=== PATIENT | male | born 1950 | race Caucasian/White ===

== ENCOUNTER → 2016-11-24 | Outpatient (CLI) | payer MEDICARE, OTHER ==
--- NOTE | 2016-11-24 11:09 | MM ---
Reason for exam: additional evaluation requested from prior study. Last mammogram was performed 1 year and 4 months ago. History: Patient is postmenopausal, history of other cancer, and is nulliparous. Family history of breast cancer in mother. Benign left mammotome panel of the left breast, May 08, 2013. Taking other hormone for 12 years beginning at age 52. Physical Findings: Nurse did not find any significant physical abnormalities on exam. MG 3D Diag Mammo W/Cad CHARISSE Bilateral CC and MLO view(s) were taken. Prior study comparison: August 03, 2015, bilateral MG diagnostic mammo w CAD CHARISSE. July 31, 2014, left breast MG diagnostic mammo LT w CAD. There are scattered fibroglandular densities. There is no discrete abnormality. No significant new findings when compared with previous films. These results were verbally communicated with the patient and result sheet given to the patient on 11/24/16. ASSESSMENT: Negative, BI-RAD 1 RECOMMENDATION: Clinical management of both breasts. Manage patient on a clinical basis.
== END | disposition home or self-care (01) ==
LOC: RADMAMWWP 11-23 14:23
PROVIDERS: ATTEND Family Medicine
DX: N64.4 Mastodynia (principal)
CPT/HCPCS: G0204; G0279

== ENCOUNTER → 2018-03-20 | Outpatient (CLI) | payer MEDICARE, OTHER ==
--- NOTE | 2018-03-21 10:04 | MR ---
EXAMINATION TYPE: MR lumbar spine wo con DATE OF EXAM: 03/20/2018 COMPARISON: 01/25/2011 HISTORY: Back pain, radiates into buttocks x 8 years TECHNIQUE: Multiplanar, multisequence images of the lumbar spine were acquired. FINDINGS: The vertebral bodies maintain normal vertebral body heights and signal other than degenerat randy endplate changes. Grade 1 anterolisthesis of L5 on S1 is appreciated. Multilevel intervertebral d isc height loss, disc desiccation, degenerative endplate changes, Schmorl's nodes, anterior osteophyt es and facet arthropathy are seen. There is a slight levoconvex curvature of the lower lumbar spine. There is a T2 hyperintense and T1 hypointense probable right renal cyst measuring 2.4 cm emanating fr om the anterior midpole cortex. There is a grade 1 anterolisthesis of L5 on S1 and there appears to b e bilateral pars interarticularis defects at this level. T1/T2 hyperintense vertebral body hemangioma seen of L5. L1-L2: There is a left paracentral disc herniation with mass effect upon the conus medullaris creatin g moderate spinal canal stenosis. This creates buckling of the conus medullaris and is superimposed u mario a broad-based disc bulge. In combination with facet arthropathy and ligamentum flavum buckling th ere is minimal right and moderate left neural foraminal narrowing. L2-L3: There is a large broad-based disc bulge and far left lateral disc herniation in combination wi th ligamentum flavum buckling and facet arthropathy creating moderate left neural foraminal narrowing , moderate right neural foraminal narrowing, and moderate spinal canal stenosis as there is effacemen t of the ventral subarachnoid space. No significant buckling of the cauda equina. L3-L4: Intervertebral disc space narrowing is seen within large broad-based disc bulge and far left l ateral disc herniation. Facet arthropathy and ligamentum flavum buckling contribute to moderate right and severe left neural foraminal narrowing. There is also moderate spinal canal stenosis. L4-L5: Extensive facet arthropathy and right eccentric disc bulge create severe right and moderate le ft neural foraminal narrowing and moderate spinal canal stenosis in the transverse dimension. L5-S1: There is disc uncovering from an anterolisthesis of L5 on S1. Extensive facet arthropathy is s een in addition to a broad-based disc bulge resulting in severe bilateral neural foraminal narrowing. IMPRESSION: 1. Extensive multilevel degenerative disc disease with grade 1 anterolisthesis of L5 on S1 and multil evel disc herniations. 2. Left paracentral disc herniation at L1-L2 with mass effect upon the conus medullaris creating rockwell ling of the conus medullaris and moderate spinal canal stenosis. 3. Degenerative disc disease and far left lateral disc herniation at L2-L3 resulting in moderate bila teral neural foraminal narrowing and moderate spinal canal stenosis. 4. Degenerative disc disease and far left lateral disc herniation at L3-L4 resulting in moderate righ t neuroforaminal narrowing and moderate spinal canal stenosis as well as severe left neural foraminal narrowing. 5. Extensive facet arthropathy and broad-based disc bulge at L4-L5 resulting in severe right neural f oraminal narrowing, moderate left neural foraminal narrowing and moderate transverse spinal canal izabel nosis. 6. Severe bilateral neural foraminal narrowing at L5-S1.
== END | disposition home or self-care (01) ==
LOC: RADMRIMAIN 14:35
PROVIDERS: ATTEND Family Medicine
DX: M48.061 Spinal stenosis, lumbar region without neurogenic claudication (principal); M99.73 Connective tissue and disc stenosis of intervertebral foramina of lumbar region; M51.26 Other intervertebral disc displacement, lumbar region; M51.37 Other intervertebral disc degeneration, lumbosacral region; M43.17 Spondylolisthesis, lumbosacral region; M46.86 Other specified inflammatory spondylopathies, lumbar region; M54.10 Radiculopathy, site unspecified
CPT/HCPCS: 72148

== ENCOUNTER → 2019-03-08 | Outpatient (CLI) | payer MEDICARE, OTHER ==
--- NOTE | 2019-03-08 15:59 | XR ---
EXAMINATION TYPE: XR abdomen 1V DATE OF EXAM: 03/08/2019 COMPARISON: NONE HISTORY: Pain TECHNIQUE: One view abdominal series FINDINGS: The osseous structures are intact. The bowel gas pattern is nonspecific. Lung bases are clear. Hype rtrophic and degenerative change of the spine. Postsurgical change involving the hips. Soft tissue os sification adjacent to the hip joints. IMPRESSION: 1. Nonspecific abdomen.
== END | disposition home or self-care (01) ==
LOC: RADXRMAIN 15:27
PROVIDERS: ATTEND Family Medicine
DX: R10.9 Unspecified abdominal pain (principal)
CPT/HCPCS: 74018

== ENCOUNTER → 2019-06-14 | Outpatient (CLI) | payer MEDICARE, OTHER ==
[2019-06-14 17:28] LABS: Hemoglobin A1C 7.7 % (4.0-6.0)
== END | disposition home or self-care (01) ==
LOC: LABWHC1 08:36
PROVIDERS: ATTEND Internal Medicine
DX: E11.65 Type 2 diabetes mellitus with hyperglycemia (principal); E29.1 Testicular hypofunction
CPT/HCPCS: 36415; 82043; 82570; 83036; 84402; 84403

== ENCOUNTER → 2019-12-26 | Outpatient (CLI) | payer MEDICARE, OTHER ==
--- NOTE | 2019-12-26 09:13 | CT ---
EXAMINATION TYPE: CT abdomen wo con DATE OF EXAM: 12/26/2019 HISTORY: mid abd pain, distention, change in bowel habits CT DLP: 297.4 mGycm. Automated Exposure Control for Dose Reduction was Utilized. TECHNIQUE: CT scan of the abdomen is performed with oral but without IV contrast. COMPARISON: NONE FINDINGS: Within the limitations of a non-contrast study, the following observations are made. LUNG BASES: Coronary artery calcification in the RCA distribution is present. LIVER/GB: Focal 1 cm calcification right hepatic dome in segment 8 presumed benign. Near this level t here is a subcentimeter hypodense lesion image 9 presumed benign too small to further characterize. PANCREAS: No significant abnormality is seen. SPLEEN: No significant abnormality is seen. ADRENALS: No significant abnormality is seen. KIDNEYS: There is 2.6 cm exophytic thin-walled cyst anteriorly upper pole level right kidney axial im age 23. There is roughly 1 cm exophytic thin-walled cysts laterally lower pole of the right kidney. N o renal calculus or hydronephrosis seen bilaterally. BOWEL: The oral contrast only reaches mid to distal jejunal loops in the left abdomen making evaluati on of all suboptimal. There is no suspicious small or large bowel dilatation. There is slightly low-l emery cecum into the right pelvis excluded in field of view on this study. There is prominence of feca l material in the right and transverse colon on the study noted. LYMPH NODES: No greater than 1cm abdominal lymph nodes are appreciated. OSSEOUS STRUCTURES: There is dextroconvex scoliosis centered at L2-L3 level. Spine is straightened on sagittal images with grade 1 anterolisthesis L5 on S1. Moderate to severe disc space narrowing and v acuum disc phenomenon along with moderate to severe spurring and endplate sclerosis level L2-L3 and L 3-L4 levels. Right lateral translation of L3 on L4 noted. Hhjsioem-qt-[id number] disc space narrowing at L4-L5 level. Moderate disc space narrowing with vacuum disc phenomenon L5-S1 level. Mild to moderate disc space narrowing with prominent posterior spur disc L1-L2 level effacing the anterior thecal sac sagittal image 57 and axial image 22 for reference. OTHER: Moderate calcified plaque of the abdominal aorta extends into branch vessels. Anterior right s mall mid abdominal calcifications near axial image 30 of uncertain etiology presumed benign. IMPRESSION: 1. Overall nonobstructive bowel gas pattern. Moderate Proximal colonic fecal stasis however noted.
== END | disposition home or self-care (01) ==
LOC: RADCTMAIN 08:07
PROVIDERS: ATTEND Family Medicine
DX: R10.84 Generalized abdominal pain (principal)
CPT/HCPCS: 74150

== ENCOUNTER → 2020-06-02 | Outpatient (CLI) | payer MEDICARE, OTHER ==
[2020-06-02 16:59] LABS: Hemoglobin A1C 5.9 % (4.0-6.0)
== END | disposition home or self-care (01) ==
LOC: LABWHC1 09:57
PROVIDERS: ATTEND Internal Medicine
DX: E11.65 Type 2 diabetes mellitus with hyperglycemia (principal); E29.1 Testicular hypofunction
CPT/HCPCS: 36415; 83036; 84402; 84403

== ENCOUNTER 2020-11-13 10:02 | Emergency (ER) | payer MEDICARE, OTHER ==
[2020-11-13 10:09] VITALS: BP 146/92; PULSE 87; RESP 18; TEMP 98.7
--- NOTE | 2020-11-13 10:13 | ED ---
Skin/Abscess/FB HPI - General Chief complaint: Skin/Abscess/Foreign Body Stated complaint: Sent by PCP - ENT Time Seen by Provider: 11/13/20 10:09 Source: patient Mode of arrival: ambulatory Limitations: no limitations - History of Present Illness Initial comments: 10-year-old male presenting to emergency Department chief complaint jaw swelling. Patient states this occurred 6 days ago and he called his primary care physician 5 days ago. States he did not receive an answer several days after. Patient states he spoke with the office staff over the phone advised him to come to emergency department for evaluation. Patient states the infection has since subsided. States it initially was erythematous and swollen near the angle of the right mandible. Patient states right now there is very minimal swelling or tenderness. He denies any night sweats fevers or chills. Patient is not diabetic. Denies any ear pain or swelling behind the ear. - Related Data Home Medications Medication Instructions Recorded Confirmed LORazepam [Ativan] 0.5 mg PO HS PRN 05/21/15 04/30/19 Aspirin [Adult Low Dose Aspirin EC] 81 mg PO DAILY 04/30/19 04/30/19 Ibuprofen [Motrin] 600 mg PO Q8HR PRN 04/30/19 04/30/19 Pioglitazone HCl 30 mg PO DAILY 04/30/19 04/30/19 Rosuvastatin [Crestor] 10 mg PO DAILY 04/30/19 04/30/19 Testosterone Cypionate 200 mg IM Q14D 04/30/19 04/30/19 [Depo-Testosterone] buPROPion HCL [Wellbutrin SR] 150 mg PO DAILY 04/30/19 04/30/19 metFORMIN HCL ER [Glucophage Xr] 1,000 mg PO BID 04/30/19 04/30/19 oxyCODONE-APAP 7.5-325MG [Percocet 1 tab PO BID PRN 04/30/19 04/30/19 7.5-325 mg] Previous Rx's Medication Instructions Recorded predniSONE [Deltasone] 20 mg PO BID #6 tab 04/30/19 Amoxicillin/Potassium Clav 1 tab PO Q12HR #20 tab 11/13/20 [Augmentin 875-125 Tablet] Allergies Allergy/AdvReac Type Severity Reaction Status Date / Time codeine Allergy Unknown Verified 11/13/20 10:08 morphine Allergy Itching Verified 11/13/20 10:08 oxycodone HCl Allergy Unknown Verified 11/13/20 10:08 [From OxyContin] Review of Systems ROS Statement: Those systems with pertinent positive or pertinent negative responses have been documented in the HPI. ROS Other: All systems not noted in ROS Statement are negative. 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, History of Any Multi-Drug Resistant Organisms: None Reported Past Surgical History: Appendectomy, Joint Replacement, Tonsillectomy Additional Past Surgical History / Comment(s): bilateral hip replacement, right elbow Past Anesthesia/Blood Transfusion Reactions: No Reported Reaction Past Psychological History: Depression Smoking Status: Current every day smoker Past Alcohol Use History: None Reported Past Drug Use History: None Reported - Past Family History Mother Family Medical History: COPD, Coronary Artery Disease (CAD), Diabetes Mellitus Brother(s) Family Medical History: Diabetes Mellitus Additional Family Medical History / Comment(s): liver transplant, hepatitis C Father Family Medical History: Cancer (Lung), Diabetes Mellitus Additional Family Medical History / Comment(s): lung CA General Exam Limitations: no limitations General appearance: alert, in no apparent distress Head exam: Present: atraumatic, normocephalic, normal inspection Eye exam: Present: normal appearance, PERRL, EOMI Pupils: Present: normal accommodation ENT exam: Present: normal exam, normal oropharynx (No signs of periapical abscess. There is no intraoral lesions. There is very mild swelling near the right ankle the mandible. No erythema or ecchymosis or any cutaneous infection noted.), mucous membranes moist, TM's normal bilaterally, normal external ear exam, other (No tenderness or erythema near the mastoid.) Neck exam: Present: normal inspection, full ROM. Absent: tenderness, lymphadenopathy Respiratory exam: Present: normal lung sounds bilaterally. Absent: respiratory distress, wheezes, rales Cardiovascular Exam: Present: regular rate, normal rhythm, normal heart sounds. Absent: systolic murmur, diastolic murmur Extremities exam: Present: normal inspection, full ROM. Absent: tenderness Back exam: Present: normal inspection, full ROM. Absent: tenderness, CVA tenderness (R), CVA tenderness (L) Neurological exam: Present: alert, oriented X3 Psychiatric exam: Present: normal affect, normal mood Skin exam: Present: warm, dry, intact, normal color Course Vital Signs 11/13/20 10:06 Temperature 98.7 F Pulse Rate 87 Respiratory 18 Rate Blood Pressure 146/92 O2 Sat by Pulse 97 Oximetry Medical Decision Making - Medical Decision Making 70-year-old male presenting to emergency Department with chief complaint of swelling on the right jaw. On physical examination, patient only has very mild swelling with no tenderness erythema or any signs of infection at this time. No mastoid tenderness or erythema. Rest of ENT examination is unremarkable. I will start patient on Augmentin. Patient advised to apply warm compresses to the region and try to eat saliva stimulative foods. Return parameters thoroughly discussed patient was understanding Misael. Case discussed with physician. Disposition Clinical Impression: Swelling of right side of face Disposition: HOME SELF-CARE Condition: Stable Instructions (If sedation given, give patient instructions): Parotid Duct Obstruction (ED), Sialoadenitis (ED) Additional Instructions: Take prescribed medication as directed. eat saliva stimulative foods like job. Keep applying warm compresses. Please return to the Emergency Department if symptoms worsen or any other concerns. Follow with the primary care physician. Prescriptions: Amoxicillin/Potassium Clav [Augmentin 875-125 Tablet] 1 tab PO Q12HR #20 tab Is patient prescribed a controlled substance at d/c from ED?: No Referrals: Candelario Pandya DO [Primary Care Provider] - 1-2 days Time of Disposition: 10:33
== END 2020-11-13 10:45 | disposition home or self-care (01) ==
LOC: EC 10:02
DX: R22.0 Localized swelling, mass and lump, head (principal); F32.9 Major depressive disorder, single episode, unspecified; E11.9 Type 2 diabetes mellitus without complications; I10 Essential (primary) hypertension; F17.200 Nicotine dependence, unspecified, uncomplicated; Z79.84 Long term (current) use of oral hypoglycemic drugs; Z79.82 Long term (current) use of aspirin; Z79.899 Other long term (current) drug therapy; Z88.5 Allergy status to narcotic agent; Z88.8 Allergy status to other drugs, medicaments and biological substances; Z90.49 Acquired absence of other specified parts of digestive tract; Z96.643 Presence of artificial hip joint, bilateral; Z96.661 Presence of right artificial ankle joint
CPT/HCPCS: 99283

== ENCOUNTER 2021-03-07 16:23 | Emergency (ER) | payer MEDICARE, OTHER ==
[2021-03-07 16:31] VITALS: RESP 16
[2021-03-07] MEDS ORDERED: DIPH,PERTUS(ACELL)TETVAC-LF 0.5 ML VIAL IM ONE (16:40)
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
[2021-03-07] MEDS ORDERED: LIDOCAINE 1% INJ 10MG/ML (20 ML MDV) SQ ONE (18:17)
[2021-03-07 19:11] VITALS: BP 121/74; PULSE 87; TEMP 98.1
== END 2021-03-07 19:10 | disposition home or self-care (01) ==
LOC: EC 16:23
DX: S06.0X0A Concussion without loss of consciousness, initial encounter (principal); S01.81XA Laceration without foreign body of other part of head, initial encounter; S01.111A Laceration without foreign body of right eyelid and periocular area, initial encounter; E11.9 Type 2 diabetes mellitus without complications; I10 Essential (primary) hypertension; F32.9 Major depressive disorder, single episode, unspecified; F17.200 Nicotine dependence, unspecified, uncomplicated; Z23 Encounter for immunization; Z90.49 Acquired absence of other specified parts of digestive tract; Z90.09 Acquired absence of other part of head and neck; Z79.84 Long term (current) use of oral hypoglycemic drugs; Z79.82 Long term (current) use of aspirin; Y04.8XXA Assault by other bodily force, initial encounter
CPT/HCPCS: 72125; 70450; 90715; 99284; 12013; 90471; 96372; J2001

== ENCOUNTER → 2021-05-18 | Outpatient (CLI) | payer MEDICARE, OTHER ==
[2021-05-18 15:24] LABS: HGB 14.4 g/dL (13.0-17.0); MCH 30.9 pg (27.0-32.0); MCHC 33.5 g/dL (32.0-37.0); MCV 92.3 fL (80.0-97.0); Mean Platelet Volume 10.4 fL (9.5-12.2); Platelet Count 265 X 10*3/uL (140-440); RBC 4.66 X 10*6/uL (4.40-5.60); RDW 12.7 % (11.5-14.5); WBC 8.81 X 10*3/uL (4.50-10.00)
[2021-05-18 18:22] LABS: Calcium 9.5 mg/dL (8.7-10.3); Chol/HDL Ratio 3.69; LDL Cholesterol,Calculated 62.6 mg/dL (0.0-131.0); Non-African American GFR(CKD) 75.9 (60.0-200.0); Potassium 4.2 mmol/L (3.5-5.5); VLDL Calculation 31.4 mg/dL (5.00-40.00)
[2021-05-18 22:22] LABS: Urine Creatinine 118.3 mg/dL
== END | disposition home or self-care (01) ==
LOC: LABWHC1 08:30
PROVIDERS: ATTEND Internal Medicine
DX: E11.65 Type 2 diabetes mellitus with hyperglycemia (principal); E29.1 Testicular hypofunction
CPT/HCPCS: 36415; 80048; 80061; 82043; 82570; 83036; 84402; 84403; 85027

== ENCOUNTER → 2021-05-18 | Outpatient (CLI) | payer MEDICARE, OTHER ==
[2021-05-18 11:13] LABS: African American GFR (CKD) >90 (>60 ml/min/1.73 sqM); Blood Urea Nitrogen 11 mg/dL (9-20); Non-African American GFR(CKD) >90 (>60 ml/min/1.73 sqM)
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
== END | disposition home or self-care (01) ==
LOC: RADCTMAIN 10:36
PROVIDERS: ATTEND Family Medicine
DX: G44.309 Post-traumatic headache, unspecified, not intractable (principal)
CPT/HCPCS: 82565; 84520; 70470; 36415; Q9967

== ENCOUNTER → 2023-03-07 | Outpatient (CLI) | payer MEDICARE, OTHER ==
--- NOTE | 2023-03-08 08:42 | XR ---
EXAMINATION TYPE: 2 view chest DATE OF EXAM: 03/08/2023 COMPARISON: 11/04/2021 HISTORY: Cough TECHNIQUE: One view abdominal series FINDINGS: The osseous structures are intact. The bowel gas pattern is nonspecific. Lung bases are clear. Arthropathy of the shoulders. Hypertrophic degenerative changes spine. No failure. IMPRESSION: 1. Mildly coarsened interstitium can be associated with a bronchitis or mild interstitial pneumonitis correlate clinically. MTDD
== END | disposition home or self-care (01) ==
LOC: RADXRMAIN 16:00
PROVIDERS: ATTEND Family Medicine
DX: R05.9 Cough, unspecified (principal); R91.8 Other nonspecific abnormal finding of lung field
CPT/HCPCS: 71046

== ENCOUNTER → 2023-04-05 | Outpatient (CLI) | payer MEDICARE, OTHER ==
[2023-04-05 16:26] LABS: ALT 16 U/L (10-49); AST 17 U/L (14-35); Blood Urea Nitrogen 8.1 mg/dL (9.0-27.0); Calcium 9.9 mg/dL (8.7-10.3); Carbon Dioxide 28.1 mmol/L (21.6-31.8); Chloride 105 mmol/L (96-109); Chol/HDL Ratio 6.08 Ratio; Glucose 119 mg/dL (70-110); LDL Cholesterol,Calculated 159.5 mg/dL (0.0-131.0); Potassium 5.2 mmol/L (3.5-5.5); Sodium 142 mmol/L (135-145)
[2023-04-05 19:21] LABS: HCT 41.9 % (39.6-50.0); HGB 13.8 d/dL (12.0-15.0); MCH 29.8 pg (27.0-32.0); MCHC 32.9 d/dL (32.0-37.0); MCV 90.5 FL (80.0-97.0); Mean Platelet Volume 10.4 FL (9.5-12.2); NRBC Per 100 WBC 0 X 10*3/uL (0.00-0.01); Platelet Count 247 X 10*3/uL (140-440); RBC 4.63 X 10*6/uL (4.40-5.60); WBC 7.33 X 10*3/uL (4.50-10.00)
== END | disposition home or self-care (01) ==
LOC: LABWHC1 09:44
PROVIDERS: ATTEND Internal Medicine Cardiovascular Disease
DX: E78.2 Mixed hyperlipidemia (principal); R07.2 Precordial pain
CPT/HCPCS: 36415; 80048; 80061; 84443; 84450; 84460; 85027

== ENCOUNTER → 2023-06-20 | Outpatient (CLI) | payer MEDICARE, OTHER ==
--- NOTE | 2023-06-20 11:10 | MR ---
EXAMINATION TYPE: MR lumbar spine wo con DATE OF EXAM: 06/20/2023 COMPARISON: 03/20/2018 HISTORY: Low back pain TECHNIQUE: T1 and T2 axial and sagittal images of the lumbar spine are submitted. FINDINGS: There is no abnormal signal seen within the visualized spinal cord or paraspinal soft tissu es. There is a curvature of the spine with severe degenerative disc disease at all levels. Simple-michael earing right renal cysts. Aorta normal caliber. At L1-2 there is there is a broad-based central disc herniation results in compression of the thecal sac and severe canal stenosis. Facet arthropathy is present. Moderate bilateral foraminal approach. At L2-3 there is broad-based central disc herniation with significant compression syndrome, severe ca nal stenosis, and additionally there is evidence of hypertrophy of the ligamentum flavum and facet sandrine ints moderate right foraminal encroachment and moderate to severe. At L3-4 there is severe degenerative disc disease with broad-based disc protrusion and facet arthropa thy. Moderate to severe canal stenosis. Moderate right and severe left foraminal protrusion. Hypertro phy of the ligamentum flavum. At L4-5 there is partial fusion of the disc space with marked hypertrophy of the facet joints. There is posterior spondylosis. Moderate bilateral foraminal moderate canal stenosis. At L5-S1 there is severe degenerative disc disease with vacuum disc. Similar throughout the. Moderate to severe bilateral foraminal enlargement greater on the left and is a grade 1 anterior listhesis of L5 on S1. There is extrusion of disc material from the disc space superiorly and paracentrally to th e left a small disc fragment seen immediately posterior to the L5 vertebral body measuring 6 mm. Susp ect bilateral stress pars defects L5. IMPRESSION: 1. Scoliosis with severe degenerative disc disease at all levels similar to the prior exam. Disc crista iation L5-S1 with extruded fragment extending posterior to the L5 segment paracentral to left. 2. Stable grade 1 anterolisthesis of L5 relative to S1. 3. Multilevel disc herniation\protrusion extending from levels L1-L4 resulting in severe canal stenos is and bilateral foraminal encroachment.
== END | disposition home or self-care (01) ==
LOC: RADMRIMAIN 09:19
PROVIDERS: ATTEND Psychiatry & Neurology Neurology
DX: M51.16 Intervertebral disc disorders with radiculopathy, lumbar region (principal); M48.061 Spinal stenosis, lumbar region without neurogenic claudication; M99.73 Connective tissue and disc stenosis of intervertebral foramina of lumbar region; M41.86 Other forms of scoliosis, lumbar region; M43.16 Spondylolisthesis, lumbar region
CPT/HCPCS: 72148

== ENCOUNTER 2023-11-17 19:06 | Emergency (ER) | payer MEDICARE, OTHER ==
[2023-11-17 19:25] VITALS: TEMP 97.6
[2023-11-17] MEDS ORDERED: SODIUM CHLORIDE 0.9% 1,000 ML IV STA (19:31)
[2023-11-17 20:08] LABS: Basophils # (A) 0.1 k/uL (0-0.2); Basophils % (A) 1 %; Eosinophils # (A) 0.2 k/uL (0-0.7); Eosinophils % (A) 2 %; HCT 45.9 % (39.0-53.0); HGB 15.1 gm/dL (13.0-17.5); Lymphocytes % (A) 26 %; MCH 30.1 pg (25.0-35.0); MCHC 32.8 g/dL (31.0-37.0); MCV 91.8 fL (80.0-100.0); Mean Platelet Volume 7.9; Monocytes # (A) 0.8 k/uL (0-1.0); Monocytes % (A) 10 %; Neutrophils # (A) 4.3 k/uL (1.3-7.7); Neutrophils % (A) 56 %; Platelet Count 206 k/uL (150-450); RDW 12.6 % (11.5-15.5); WBC 7.7 k/uL (3.8-10.6)
[2023-11-17 20:45] LABS: ALT 12 U/L (4-49); AST 17 U/L (17-59); African American GFR (CKD) 77 (>60 ml/min/1.73 sqM); Albumin 3.9 g/dL (3.5-5.0); Alkaline Phosphatase 74 U/L (38-126); Anion Gap 4 mmol/L; Blood Urea Nitrogen 18 mg/dL (9-20); Calcium 9.2 mg/dL (8.4-10.2); Carbon Dioxide 27 mmol/L (22-30); Chloride 106 mmol/L (98-107); Glucose 120 mg/dL (74-99); Non-African American GFR(CKD) 66 (>60 ml/min/1.73 sqM); Potassium 4.1 mmol/L (3.5-5.1); Sodium 137 mmol/L (137-145); Total Bilirubin 0.5 mg/dL (0.2-1.3); Total Protein 6.7 g/dL (6.3-8.2)
--- NOTE | 2023-11-17 20:46 | XR ---
EXAMINATION TYPE: XR chest 2V DATE OF EXAM: 11/17/2023 COMPARISON: 03/07/2023 HISTORY: Shortness of breath TECHNIQUE: Frontal and lateral views of the chest are obtained. FINDINGS: Scattered senescent parenchymal changes noted. Hyperinflation compatible with COPD. No evidence for infiltrate. No evidence for atelectasis. Heart size is stable. Mediastinal structures are stable and grossly unremarkable. No evidence for hilar prominence. Degenerative changes dorsal spine. IMPRESSION: 1. No evidence for acute pulmonary disease.
[2023-11-17 21:06] LABS: INR 0.9 (<1.2); Prothrombin Time 10.2 sec (10.0-12.5)
[2023-11-17 22:03] VITALS: PULSE 75
[2023-11-17 22:27] LABS: Appearance,Urine Clear (Clear); Bacteria,Urine Few /hpf; Bilirubin,Urine Negative (Negative); Blood,Urine Negative (Negative); Color,Urine Light Yellow; Glucose,Urine (UA) 4+ (Negative); Hyaline Casts,Urine 6 /lpf (0-2); Ketones,Urine Negative (Negative); Leukocyte Esterase,Urine Large (Negative); Mucus,Urine Rare /hpf; Nitrite,Urine Positive (Negative); PH, Urine 5.5 (5.0-8.0); Protein,Urine Negative (Negative); RBC,Urine 3 /hpf (0-5); Specific Gravity,Urine 1.026 (1.001-1.035); Squamous Epithelial Cell,Urine 1 /hpf (0-4); Urobilinogen,Urine <2.0 mg/dL (<2.0); WBC,Urine 33 /hpf (0-5)
--- NOTE | 2023-11-17 22:51 | CT ---
EXAMINATION TYPE: CT chest angio for PE DATE OF EXAM: 11/17/2023 COMPARISON: NONE HISTORY: Hypotension, elevated d-dimer CT DLP: 445 mGycm. Automated Exposure Control for Dose Reduction was Utilized. CONTRAST: CTA scan of the thorax is performed with IV Contrast, patient injected with 100 mL of Isovue 370, pul monary embolism protocol. MIP Images are created on CT scanner and reviewed. FINDINGS: LUNGS: Dependent atelectasis bilateral lower lobes. No suspicious focal consolidation. No pleural eff usion or pneumothorax seen bilaterally. No concerning pulmonary masses. MEDIASTINUM: There is satisfactory enhancement of the pulmonary artery and its branches, there is no CT evidence for pulmonary embolism. Some enhancement of the ascending aorta measuring up to 4.0 cm in diameter. There are no greater than 1 cm hilar or mediastinal lymph nodes. No cardiomegaly or nani cardial effusion is seen. There is moderate to severe three-vessel coronary artery calcification. OTHER: Single calcification in the hepatic dome axial image 119 is presumed benign. Multilevel spurri ng in the spine. Mild height loss involving the superior T12 endplate. IMPRESSION: 1. No CT evidence for acute pulmonary embolism. 2. No suspicious acute pulmonary process.
--- NOTE | 2023-11-17 23:02 | ED ---
General Adult HPI - General Chief complaint: Dizziness Stated complaint: Dizziness Source: EMS Mode of arrival: EMS Limitations: no limitations - History of Present Illness Initial comments: 73-year-old male presents emergency department reporting lightheadedness. States he went outside and was shoveling snow. He came back inside shortly afterwards he felt like his to pass out. Patient called EMS who found him to have an extremely low blood pressure. He states that he has been recently sick and was taking a Z-Patrick and steroids. States his symptoms have mostly improved. He denies any chest pain or shortness of breath. Patient does have history of coronary disease. He denies any calf pain or swelling. No abdominal pain. No numbness, tingling or weakness in his extremities. No recent medication changes. No black or bloody stools. No vomiting. No other alleviating, precipitating or modifying factors - Related Data Home Medications Medication Instructions Recorded Confirmed Ibuprofen [Motrin] 600 mg PO TID-W/MEALS PRN 04/30/19 11/17/23 Testosterone Cypionate 200 mg IM Q14D 04/30/19 11/17/23 [Depo-Testosterone] metFORMIN HCL ER [Glucophage Xr] 1,000 mg PO BID 04/30/19 11/17/23 Pioglitazone [Actos] 15 mg PO DAILY 03/07/21 11/17/23 DULoxetine HCL [Cymbalta] 60 mg PO DAILY 11/17/23 11/17/23 Fluconazole [Diflucan] 150 mg PO DIRECTED 11/17/23 11/17/23 Isosorbide Mononitrate ER [Imdur] 30 mg PO DAILY 11/17/23 11/17/23 Metoprolol Succinate (ER) [Toprol 25 mg PO DAILY 11/17/23 11/17/23 Xl] Nitroglycerin Sl Tabs [Nitrostat] 0.4 mg SL Q5M PRN 11/17/23 11/17/23 lisinopriL [Zestril] 20 mg PO DAILY 11/17/23 11/17/23 Allergies Allergy/AdvReac Type Severity Reaction Status Date / Time codeine Allergy Unknown Verified 11/17/23 21:20 oxycodone HCl Allergy Unknown Verified 11/17/23 21:20 [From OxyContin] Penicillins Allergy Unknown Verified 11/17/23 21:20 Review of Systems ROS Statement: Those systems with pertinent positive or pertinent negative responses have been documented in the HPI. ROS Other: All systems not noted in ROS Statement are negative. 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, History of Any Multi-Drug Resistant Organisms: None Reported Past Surgical History: Appendectomy, Joint Replacement, Tonsillectomy Additional Past Surgical History / Comment(s): bilateral hip replacement, right elbow Past Anesthesia/Blood Transfusion Reactions: No Reported Reaction Past Psychological History: Depression Smoking Status: Current every day smoker Past Alcohol Use History: None Reported Past Drug Use History: None Reported - Past Family History Mother Family Medical History: COPD, Coronary Artery Disease (CAD), Diabetes Mellitus Brother(s) Family Medical History: Diabetes Mellitus Additional Family Medical History / Comment(s): liver transplant, hepatitis C Father Family Medical History: Cancer (Lung), Diabetes Mellitus Additional Family Medical History / Comment(s): lung CA General Exam Limitations: no limitations General appearance: alert, in no apparent distress Head exam: Present: atraumatic, normocephalic, normal inspection Eye exam: Present: normal appearance, PERRL, EOMI. Absent: scleral icterus, conjunctival injection, periorbital swelling ENT exam: Present: normal exam, mucous membranes moist Neck exam: Present: normal inspection. Absent: tenderness, meningismus, lymphadenopathy Respiratory exam: Present: normal lung sounds bilaterally. Absent: respiratory distress, wheezes, rales, rhonchi, stridor Cardiovascular Exam: Present: regular rate, normal rhythm, normal heart sounds. Absent: systolic murmur, diastolic murmur, rubs, gallop, clicks GI/Abdominal exam: Present: soft, normal bowel sounds. Absent: distended, t enderness, guarding, rebound, rigid Extremities exam: Present: normal inspection, full ROM, normal capillary refill. Absent: tenderness, pedal edema, joint swelling, calf tenderness Back exam: Present: normal inspection Neurological exam: Present: alert, oriented X3, CN II-XII intact Psychiatric exam: Present: normal affect, normal mood Skin exam: Present: warm, dry, intact, normal color. Absent: rash Course Vital Signs 11/17/23 11/17/23 11/17/23 19:08 20:45 21:00 Temperature 97.6 F Pulse Rate 75 80 Respiratory 18 12 23 Rate Blood Pressure 65/35 112/73 114/77 O2 Sat by Pulse 95 98 98 Oximetry 11/17/23 11/17/23 21:30 22:30 Temperature Pulse Rate 75 75 Respiratory 23 19 Rate Blood Pressure 115/77 121/79 O2 Sat by Pulse 95 95 Oximetry Medical Decision Making - Medical Decision Making Was pt. sent in by a medical professional or institution (, PA, GALLEY WORKER, urgent care, hospital, or senior care...) When possible be specific @ -No Did you speak to anyone other than the patient for history (EMS, parent, family, police, friend...)? What history was obtained from this source @ -EMS Did you review nursing and triage notes (agree or disagree)? Why? @ -I reviewed and agree with nursing and triage notes Were old charts reviewed (outside hosp., previous admission, EMS record, old EKG, old radiological studies, urgent care reports/EKG's, senior care records)? Report findings @ -No old charts were reviewed Differential Diagnosis (chest pain, altered mental status, abdominal pain women, abdominal pain men, vaginal bleeding, weakness, fever, dyspnea, syncope, headache, dizziness, GI bleed, back pain, seizure, CVA, palpatations, mental health, musculoskeletal)? @ -Differential Syncope: Valvular disease, hypertrophic cardiomyopathy, pulmonary embolism, tamponade, tachycardia, bradycardia, [place], hypovolemia, hemorrhage, dissection, anemia, intracranial hemorrhage, seizure, hypoglycemia, carbon monoxide poisoning, this is not meant to be an all-inclusive list. EKG interpreted by me (3pts min.). Yes, completed at 1911 and demonstrates sinus rhythm with a rate of 78. CO interval 162. QRS 100. QTC of 403. No acute ST segment elevation or depression Yes, completed at 1936 and demonstrates sinus rhythm with a rate of 75. CO interval 152. QRS 109. QTC of 408. No acute ST segment elevations or depressions X-rays interpreted by me (1pt min.). @ -Yes and demonstrates no acute process CT interpreted by me (1pt min.). @ -Yes and demonstrates no acute process U/S interpreted by me (1pt. min.). @ -None done What testing was considered but not performed or refused? (CT, X-rays, U/S, labs)? Why? @ -None What meds were considered but not given or refused? Why? @ -None Did you discuss the management of the patient with other professionals (professionals i.e. , PA, GALLEY WORKER, lab, RT, psych nurse, social media designer, salvage winder and inspector, teacher, disability hearing officer, clinical case manager)? Give summary @ -No Was smoking cessation discussed for >3mins.? @ -No Was critical care preformed (if so, how long)? @ -No Were there social determinants of health that impacted care today? How? (Homelessness, low income, unemployed, alcoholism, drug addiction, transportation, low edu. Level, literacy, decrease access to med. care, care home, rehab)? @ -No Was there de-escalation of care discussed even if they declined (Discuss DNR or withdrawal of care, Hospice)? DNR status @ -No What co-morbidities impacted this encounter? (DM, HTN, Smoking, COPD, CAD, Cancer, CVA, ARF, Chemo, Hep., AIDS, mental health diagnosis, sleep apnea, morbid obesity)? @ -Diabetes, hypertension Was patient admitted / discharged? Hospital course, mention meds given and route, prescriptions, significant lab abnormalities, going to OR and other pertinent info. @ -Upon arrival patient was placed into room 1. History and physical exam was performed. Patient placed on continuous pulse ox and cardiac monitoring. 12- lead EKG is obtained. Patient markedly hypotensive and therefore is given 2 L of normal saline. Laboratory studies reveal an elevated d-dimer. CT is performed without PE. Results are discussed patient. He does ambulate to the bathroom maintains a steady blood pressure. I discussed results with the patient. I recommended admission however patient wanted to go home. I discussed the risks for which patient understood. Patient has an appointment with his primary care doctor on Monday. Recommend that he keep this scheduled appointment. Return to the emergency department for any return of his symptoms. Patient was agreeable and discharged in stable condition Undiagnosed new problem with uncertain prognosis? @ -Yes Drug Therapy requiring intensive monitoring for toxicity (Heparin, Nitro, I nsulin, Cardizem)? @ -No Were any procedures done? @ -No Diagnosis/symptom? @ -Acute syncope, hypotension, elevated D-dimer Acute, or Chronic, or Acute on Chronic? @ -Acute Uncomplicated (without systemic symptoms) or Complicated (systemic symptoms)? @ -Complicated Side effects of treatment? @ -No Exacerbation, Progression, or Severe Exacerbation? @ -No Poses a threat to life or bodily function? How? (Chest pain, [place], [place], pneumonia, PE, COPD, DKA, ARF, appy, cholecystitis, CVA, Diverticulitis, Homicidal, Suicidal, threat to staff... and all critical care pts) @ -Possibly as patient presents with significant hypotension without cause - Lab Data Result diagrams: 11/17/23 19:40 11/17/23 19:40 Lab Results 11/17/23 11/17/23 11/17/23 Range/Units 19:40 19:40 19:40 WBC 7.7 (3.8-10.6) k/uL RBC 5.00 (4.30-5.90) m/uL Hgb 15.1 (13.0-17.5) gm/dL Hct 45.9 (39.0-53.0) % MCV 91.8 (80.0-100.0) fL MCH 30.1 (25.0-35.0) pg MCHC 32.8 (31.0-37.0) g/dL RDW 12.6 (11.5-15.5) % Plt Count 206 (150-450) k/uL MPV 7.9 Neutrophils % 56 % Lymphocytes % 26 % Monocytes % 10 % Eosinophils % 2 % Basophils % 1 % Neutrophils # 4.3 (1.3-7.7) k/uL Lymphocytes # 2.0 (1.0-4.8) k/uL Monocytes # 0.8 (0-1.0) k/uL Eosinophils # 0.2 (0-0.7) k/uL Basophils # 0.1 (0-0.2) k/uL PT 10.2 (10.0-12.5) sec INR 0.9 (<1.2) D-Dimer 1.15 H (<0.60) mg/L FEU Sodium (137-145) mmol/L Potassium (3.5-5.1) mmol/L Chloride (98-107) mmol/L Carbon Dioxide (22-30) mmol/L Anion Gap mmol/L BUN (9-20) mg/dL Creatinine (0.66-1.25) mg/dL Est GFR (CKD-EPI)AfAm (>60 ml/min/1.73 sqM) Est GFR (CKD-EPI)NonAf (>60 ml/min/1.73 sqM) Glucose (74-99) mg/dL Plasma Lactic Acid Jarad (0.7-2.0) mmol/L Calcium (8.4-10.2) mg/dL Total Bilirubin (0.2-1.3) mg/dL AST (17-59) U/L ALT (4-49) U/L Alkaline Phosphatase (38-126) U/L Troponin I (0.000-0.034) ng/mL Total Protein (6.3-8.2) g/dL Albumin (3.5-5.0) g/dL Urine Color Light Yellow Urine Appearance Clear (Clear) Urine pH 5.5 (5.0-8.0) Ur Specific Anderson 1.026 (1.001-1.035) Urine Protein Negative (Negative) Urine Glucose (UA) 4+ H (Negative) Urine Ketones Negative (Negative) Urine Blood Negative (Negative) Urine Nitrite Positive (Negative) Urine Bilirubin Negative (Negative) Urine Urobilinogen <2.0 (<2.0) mg/dL Ur Leukocyte Esterase Large H (Negative) Urine RBC 3 (0-5) /hpf Urine WBC 33 H (0-5) /hpf Ur Squamous Epith Cells 1 (0-4) /hpf Urine Bacteria Few H (None) /hpf Hyaline Casts 6 H (0-2) /lpf Urine Mucus Rare H (None) /hpf Influenza Type A (PCR) (Not Detectd) Influenza Type B (PCR) (Not Detectd) RSV (PCR) (Not Detectd) SARS-CoV-2 (PCR) (Not Detectd) 11/17/23 11/17/23 11/17/23 Range/Units 19:40 19:40 19:40 WBC (3.8-10.6) k/uL RBC (4.30-5.90) m/uL Hgb (13.0-17.5) gm/dL Hct (39.0-53.0) % MCV (80.0-100.0) fL MCH (25.0-35.0) pg MCHC (31.0-37.0) g/dL RDW (11.5-15.5) % Plt Count (150-450) k/uL MPV Neutrophils % % Lymphocytes % % Monocytes % % Eosinophils % % Basophils % % Neutrophils # (1.3-7.7) k/uL Lymphocytes # (1.0-4.8) k/uL Monocytes # (0-1.0) k/uL Eosinophils # (0-0.7) k/uL Basophils # (0-0.2) k/uL PT (10.0-12.5) sec INR (<1.2) D-Dimer (<0.60) mg/L FEU Sodium 137 (137-145) mmol/L Potassium 4.1 (3.5-5.1) mmol/L Chloride 106 (98-107) mmol/L Carbon Dioxide 27 (22-30) mmol/L Anion Gap 4 mmol/L BUN 18 (9-20) mg/dL Creatinine 1.11 (0.66-1.25) mg/dL Est GFR (CKD-EPI)AfAm 77 (>60 ml/min/1.73 sqM) Est GFR (CKD-EPI)NonAf 66 (>60 ml/min/1.73 sqM) Glucose 120 H (74-99) mg/dL Plasma Lactic Acid Jarad 1.6 (0.7-2.0) mmol/L Calcium 9.2 (8.4-10.2) mg/dL Total Bilirubin 0.5 (0.2-1.3) mg/dL AST 17 (17-59) U/L ALT 12 (4-49) U/L Alkaline Phosphatase 74 (38-126) U/L Troponin I <0.012 (0.000-0.034) ng/mL Total Protein 6.7 (6.3-8.2) g/dL Albumin 3.9 (3.5-5.0) g/dL Urine Color Urine Appearance (Clear) Urine pH (5.0-8.0) Ur Specific Anderson (1.001-1.035) Urine Protein (Negative) Urine Glucose (UA) (Negative) Urine Ketones (Negative) Urine Blood (Negative) Urine Nitrite (Negative) Urine Bilirubin (Negative) Urine Urobilinogen (<2.0) mg/dL Ur Leukocyte Esterase (Negative) Urine RBC (0-5) /hpf Urine WBC (0-5) /hpf Ur Squamous Epith Cells (0-4) /hpf Urine Bacteria (None) /hpf Hyaline Casts (0-2) /lpf Urine Mucus (None) /hpf Influenza Type A (PCR) (Not Detectd) Influenza Type B (PCR) (Not Detectd) RSV (PCR) (Not Detectd) SARS-CoV-2 (PCR) (Not Detectd) 11/17/23 Range/Units 20:01 WBC (3.8-10.6) k/uL RBC (4.30-5.90) m/uL Hgb (13.0-17.5) gm/dL Hct (39.0-53.0) % MCV (80.0-100.0) fL MCH (25.0-35.0) pg MCHC (31.0-37.0) g/dL RDW (11.5-15.5) % Plt Count (150-450) k/uL MPV Neutrophils % % Lymphocytes % % Monocytes % % Eosinophils % % Basophils % % Neutrophils # (1.3-7.7) k/uL Lymphocytes # (1.0-4.8) k/uL Monocytes # (0-1.0) k/uL Eosinophils # (0-0.7) k/uL Basophils # (0-0.2) k/uL PT (10.0-12.5) sec INR (<1.2) D-Dimer (<0.60) mg/L FEU Sodium (137-145) mmol/L Potassium (3.5-5.1) mmol/L Chloride (98-107) mmol/L Carbon Dioxide (22-30) mmol/L Anion Gap mmol/L BUN (9-20) mg/dL Creatinine (0.66-1.25) mg/dL Est GFR (CKD-EPI)AfAm (>60 ml/min/1.73 sqM) Est GFR (CKD-EPI)NonAf (>60 ml/min/1.73 sqM) Glucose (74-99) mg/dL Plasma Lactic Acid Jarad (0.7-2.0) mmol/L Calcium (8.4-10.2) mg/dL Total Bilirubin (0.2-1.3) mg/dL AST (17-59) U/L ALT (4-49) U/L Alkaline Phosphatase (38-126) U/L Troponin I (0.000-0.034) ng/mL Total Protein (6.3-8.2) g/dL Albumin (3.5-5.0) g/dL Urine Color Urine Appearance (Clear) Urine pH (5.0-8.0) Ur Specific Anderson (1.001-1.035) Urine Protein (Negative) Urine Glucose (UA) (Negative) Urine Ketones (Negative) Urine Blood (Negative) Urine Nitrite (Negative) Urine Bilirubin (Negative) Urine Urobilinogen (<2.0) mg/dL Ur Leukocyte Esterase (Negative) Urine RBC (0-5) /hpf Urine WBC (0-5) /hpf Ur Squamous Epith Cells (0-4) /hpf Urine Bacteria (None) /hpf Hyaline Casts (0-2) /lpf Urine Mucus (None) /hpf Influenza Type A (PCR) Not Detected (Not Detectd) Influenza Type B (PCR) Not Detected (Not Detectd) RSV (PCR) Not Detected (Not Detectd) SARS-CoV-2 (PCR) Not Detected (Not Detectd) Disposition Clinical Impression: Hypotension, Near syncope Disposition: HOME SELF-CARE Condition: Stable Instructions (If sedation given, give patient instructions): Near Syncope (ED) Additional Instructions: Please return should your symptoms return. I recommend an echo of your heart - talk to you doctor about having this done Is patient prescribed a controlled substance at d/c from ED?: No Referrals: Candelario Pandya DO [Primary Care Provider] - 1-2 days Time of Disposition: 23:02
[2023-11-17 23:13] VITALS: BP 121/79; RESP 19
== END 2023-11-17 23:16 | disposition home or self-care (01) ==
LOC: EC 19:06
DX: R55 Syncope and collapse (principal); I95.9 Hypotension, unspecified; R79.1 Abnormal coagulation profile; E11.9 Type 2 diabetes mellitus without complications; I10 Essential (primary) hypertension; I25.10 Atherosclerotic heart disease of native coronary artery without angina pectoris; F32.A Depression, unspecified; F17.200 Nicotine dependence, unspecified, uncomplicated; Z20.822 Contact with and (suspected) exposure to COVID-19; Z79.899 Other long term (current) drug therapy; Z79.84 Long term (current) use of oral hypoglycemic drugs
CPT/HCPCS: 36415; 93005; 85379; 80053; 83605; 84484; 85025; 85610; 81001; 87636; 71046; 71275; 99285; Q9967

== ENCOUNTER → 2024-05-24 | Outpatient (CLI) | payer MEDICARE, OTHER ==
--- NOTE | 2024-05-24 13:25 | XR ---
EXAMINATION TYPE: XR abdomen 1V DATE OF EXAM: 05/24/2024 COMPARISON: NONE HISTORY: Pain TECHNIQUE: One view abdominal series FINDINGS: The bowel gas pattern is nonspecific. Lung bases are clear. Scoliosis of the spine with multilevel d egenerative disc disease. Moderate retained stool burden correlate for constipation. Bilateral hip re placement surgery. SI joint and symphysis pubis arthropathy. No definite suspicious calcifications. Evaluation of the renal outlines is limited due to overlying b owel content. A rounded calcification beneath the right hemidiaphragm could relate to a small granulo ma within the liver or less likely gallstone. IMPRESSION: 1. Nonspecific abdomen. No definite suspicious calcifications. If high clinical concern for renal or ureteral calculus consider follow-up noncontrast CT abdomen and pelvis. 2. Correlate for constipation.
== END | disposition home or self-care (01) ==
LOC: RADXRMAIN 12:59
PROVIDERS: ATTEND Family Medicine
DX: N20.0 Calculus of kidney (principal)
CPT/HCPCS: 74018

== ENCOUNTER → 2024-10-28 | Outpatient (CLI) | payer MEDICARE, OTHER ==
--- NOTE | 2024-10-31 22:27 | CT ---
EXAMINATION TYPE: CT shoulder LT wo con DATE OF EXAM: 10/28/2024 5:23 PM COMPARISON: None. CLINICAL INDICATION: Male, 74 years old with history of Arthrex protocol; left shoulder; M19.012, pre -op left shoulder TECHNIQUE: Contrast used: mL of , (none if empty) Oral contrast used: (none if empty) Axial images 3 mm thick sections. Dedicated 0.5 mm thick sections performed for presurgical evaluatio n Reconstructed images in the coronal and sagittal planes. 3-D reconstructed images performed on a [employer] computer by the technologist are reviewed. FINDINGS: Large inferior humeral head spurring and anterior glenoid spurring is evident. There is loss of joint space at the inferior glenohumeral junction. Acromiohumeral joint space is preserved. There is some mild acromioclavicular hypertrophy. No acute fracture is evident. IMPRESSION: 1. MODERATELY ADVANCED DEGENERATIVE CHANGES WITH LARGE OSSEOUS SPURS FROM THE GLENOID AND HUMERAL DAVID [facility], , 10/31/2024 10:24 PM
== END | disposition home or self-care (01) ==
LOC: RADCTMAIN 15:36
PROVIDERS: ATTEND Orthopaedic Surgery Hand Surgery
DX: Z01.818 Encounter for other preprocedural examination (principal); M19.012 Primary osteoarthritis, left shoulder

== ENCOUNTER 2024-11-11 13:27 | Day surgery (SDC) | payer MEDICARE, OTHER ==
[~2024-11-11 13:27] MED LIST: LIDOCAINE 1% (10MG/ML) FOR IV START INTRADERMA PRN; ONDANSETRON 4 MG/2 ML VIAL IVP PRN; TRANEXAMIC 1,000 MG/100ML-NACL 1,000 MG in SALINE 1 100ML.BAG IVPB PRN; fentaNYL (PF) 50 MCG/ML 2 ML AMP IV PRN
[2024-11-11] MEDS ORDERED: SENNOSIDES-DOCUSATE SODIUM 1 EACH TAB PO PRN (13:58)
[2024-11-11] MEDS ORDERED: HYDROcodone/APAP 5-325MG 1 EACH TAB PO PRN (13:58)
[2024-11-11] MEDS: SODIUM CHLORIDE 0.9% 1,000 ML IV ONE (14:04)
[2024-11-11] MEDS: ACETAMINOPHEN TAB 500 MG TAB PO PRN (14:07)
[2024-11-11] MEDS: MELOXICAM 7.5 MG TAB PO PRN (14:08)
[2024-11-11] MEDS: GABAPENTIN 300 MG CAP PO PRN (14:08)
[2024-11-11] MEDS: ONDANSETRON 4 MG/2 ML VIAL IVP ONE (14:08)
[2024-11-11] MEDS: DEXAMETHASONE SOD PHOSPHATE 4 MG/ML 1 ML VIAL IVP STA (14:10)
[2024-11-11 14:15] LABS: Glucose,Whole Blood 120 mg/dL (70-110)
[2024-11-11] MEDS: MIDAZOLAM 2 MG/2 ML VIAL IV ONE (14:24)
[2024-11-11] MEDS ORDERED: ePHEDrine 50 MG/ML 1 ML VIAL ONE (14:26)
[2024-11-11] MEDS ORDERED: LIDOCAINE 1% INJ 10MG/ML (20 ML MDV) ONE (14:26)
[2024-11-11] MEDS ORDERED: DEXAMETHASONE SOD PHOSPHATE 4 MG/ML 1 ML VIAL ONE (14:26)
[2024-11-11] MEDS ORDERED: TRANEXAMIC 1,000 MG/100ML-NACL PREMIX BAG ONE (14:26)
[2024-11-11] MEDS ORDERED: VASOPRESSIN 20 UNIT/ML 1 ML VIAL ONE (14:26)
[2024-11-11] MEDS ORDERED: PROPOFOL 10 MG/ML 20 ML VIAL IV ONE (14:26)
[2024-11-11] MEDS ORDERED: fentaNYL (PF) 50 MCG/ML 2 ML AMP ONE (14:26)
[2024-11-11] MEDS ORDERED: SUCCINYLCHOLINE CHLORIDE 200 MG/10 ML VIAL IV ONE (14:26)
[2024-11-11] MEDS ORDERED: ROPIVACAINE 5 MG/ML 30 ML VIAL ONE (14:26)
[2024-11-11] MEDS ORDERED: WATER FOR INJECTION, STERILE 10 ML VIAL IV ONE (14:26)
[2024-11-11] MEDS ORDERED: PHENYLEPHRINE-0.9% NACL SYG 1,000 MCG/10 ML SYRINGE ONE (14:26)
--- NOTE | 2024-11-11 14:49 | P.ANPRN ---
Procedure Note - Anesthesia - Nerve Block Performed Left Interscalene Single Time Out Performed: Yes Date of Procedure: 11/11/24 Procedure Start Time: : Procedure Stop Time: Location of Patient: PreOp Indication: Acute Post-Operative Pain, Requested by Surgeon Sedation Type: Sedate with meaningful contact maintained Preparation: Sterile Prep Position: Supine Needle Types: Pajunk Needle Gauge: 21 Ultrasound used to visualize needle placement: Yes Ultrasound used to observe medication spread: Yes Blood Aspirated: No Pain Paresthesia on Injection Noted: No Resistance on Injection: Normal Image Stored and Saved: Yes Events: Other (see comment) (Ropivacaine 0.5% 20 cc plus dexamethasone 4 mg)
[2024-11-11] MEDS: ceFAZolin 1,000 MG in SODIUM CHLORIDE 0.9% 1,000 ML IRRIGATION ONE (15:10)
[2024-11-11] MEDS: LACTATED RINGERS 500 ML IV ONE (16:35)
[2024-11-11 17:52] LABS: Glucose,Whole Blood 169 mg/dL (70-110)
--- NOTE | 2024-11-11 18:20 | XR ---
EXAMINATION TYPE: XR shoulder limited LT DATE OF EXAM: 11/11/2024 6:11 PM COMPARISON: None CLINICAL INDICATION: Male, 74 years old with history of s/p Left RSA, assess alignment, pain TECHNIQUE: XR shoulder limited LT; examined in AP, internally rotated and scapular Y projections. FINDINGS: Shoulder arthroplasty with hardware intact. Subcutaneous lucencies compatible with recent surgery. No evidence for fracture. Hardware appears in tact The remaining portions of the visualized chest are unremarkable. IMPRESSION: Post shoulder arthroplasty, no evidence for immediate postop complication. [facility], , 11/11/2024 6:18 PM
[2024-11-11] MEDS: droPERidol 5 MG/2 ML VIAL IVP ONE (18:34)
[2024-11-11] MEDS: LACTATED RINGERS 1,000 ML IV SCH (18:34)
[2024-11-11] MEDS ORDERED: DEXTROSE 50% SYRINGE 50 ML IVP PRN ×2 (20:52)
[2024-11-11 21:16] LABS: Glucose,Whole Blood 154 mg/dL (70-110)
[2024-11-11] MEDS: GABAPENTIN 300 MG CAP PO SCH (21:30)
[2024-11-11] MEDS: INSULIN ASPART (NovoLOG) 100 UNIT/ML VIAL SQ SCH (21:30)
[2024-11-12] MEDS: HYDROcodone/APAP 5-325MG 1 EACH TAB PO PRN (03:04)
[2024-11-12] MEDS: ONDANSETRON 4 MG/2 ML VIAL IVP PRN (05:44)
[2024-11-12 06:24] LABS: Glucose,Whole Blood 136 mg/dL (70-110)
[2024-11-12] MEDS: HYDROmorphone 1 MG/ML 1 ML SYRINGE IVP PRN (09:10)
[2024-11-12] MEDS: PIOGLITAZONE 15 MG TAB PO SCH (09:11)
[2024-11-12] MEDS: METOPROLOL SUCCINATE (ER) 25 MG TAB.ER.24H PO SCH (09:11)
[2024-11-12] MEDS: ISOSORBIDE MONONITRATE ER 30 MG TAB.ER.24H PO SCH (09:11)
[2024-11-12] MEDS: FLUoxetine HCL 20 MG CAP PO SCH (09:11)
[2024-11-12] MEDS ORDERED: HYDROcodone/APAP 7.5-325MG 1 EACH TAB PO PRN (09:39)
--- NOTE | 2024-11-12 09:47 | P.DS ---
Providers Expected date of discharge: 11/12/24 Attending physician: Lynne Way DO Consults: 11/11/24 19:09 Consult Physician Routine Consulting Provider: Rodger Sorenson Consult Reason/Comments: medical management Do you want consulting provider notified?: Yes Primary care physician: Candelario Pandya - Discharge Diagnosis(es) (1) Status post reverse arthroplasty of left shoulder Current Visit: Yes Status: Acute (2) Osteoarthritis of left shoulder Current Visit: Yes Status: Acute Hospital Course: Solo is a 74-year-old male who has history of severe degenerative arthritis of the left shoulder and presented to discuss surgical options. After discuss ion and consideration the patient elects to proceed with reverse shoulder arthroplasty. The patient is seen preoperatively by their family physician/cardiology and cleared for surgery. The patient is admitted to [facility] on 11/11/2023 for left reverse shoulder arthroplasty. He is doing well postoperatively. Vital signs and hemoglobin are stable. The pt is able to get up out of bed independently and is ambulating without assistance. Pain is well controlled. Patient is discharged to home on postoperative day #1 in good condition. Please see med rec for accurate list of home medications. Pertinent Studies: Laboratory Tests 11/12/24 02:20 Hemoglobin A1c 6.9 H Patient Condition at Discharge: Stable Plan - Discharge Summary Discharge Rx Participant: No New Discharge Prescriptions: New Sennosides-Docusate Sodium [Senokot-S] 2 tab PO DAILY #30 tablet HYDROcodone/APAP 7.5-325MG [[place] 7.5-325] 1 - 2 tab PO Q6HR PRN #32 tab PRN Reason: Pain No Action metFORMIN HCL ER [Glucophage Xr] 1,000 mg PO BID Testosterone Cypionate [Depo-Testosterone] 200 mg IM Q14D lisinopriL [Zestril] 20 mg PO DAILY Nitroglycerin Sl Tabs [Nitrostat] 0.4 mg SL Q5M PRN PRN Reason: Chest Pain Aspirin 81 mg PO DAILY Empagliflozin [Jardiance] 25 mg PO DAILY FLUoxetine HCL [PROzac] 20 mg PO DAILY Gabapentin [Neurontin] 300 mg PO HS Pioglitazone [Actos] 15 mg PO DAILY Metoprolol Succinate (ER) [Toprol Xl] 25 mg PO DAILY Isosorbide Mononitrate ER [Imdur] 30 mg PO DAILY Discharge Medication List Testosterone Cypionate [Depo-Testosterone] 200 mg IM Q14D 04/30/19 [History] metFORMIN HCL ER [Glucophage Xr] 1,000 mg PO BID 04/30/19 [History] Pioglitazone [Actos] 15 mg PO DAILY 03/07/21 [History] Isosorbide Mononitrate ER [Imdur] 30 mg PO DAILY 11/17/23 [History] Metoprolol Succinate (ER) [Toprol Xl] 25 mg PO DAILY 11/17/23 [History] Nitroglycerin Sl Tabs [Nitrostat] 0.4 mg SL Q5M PRN 11/17/23 [History] lisinopriL [Zestril] 20 mg PO DAILY 11/17/23 [History] Aspirin 81 mg PO DAILY 11/07/24 [History] Empagliflozin [Jardiance] 25 mg PO DAILY 11/07/24 [History] FLUoxetine HCL [PROzac] 20 mg PO DAILY 11/07/24 [History] Gabapentin [Neurontin] 300 mg PO HS 11/07/24 [History] HYDROcodone/APAP 7.5-325MG [[place] 7.5-325] 1 - 2 tab PO Q6HR PRN #32 tab 11/12/24 [Rx] Sennosides-Docusate Sodium [Senokot-S] 2 tab PO DAILY #30 tablet 11/12/24 [Rx] Follow up Appointment(s)/Referral(s): Lynne Way DO [Doctor of Osteopathic Medicine] - 11/25/24 10:55 am Activity/Diet/Wound Care/Special Instructions: Keep dressing on shoulder for 1 week then may remove. Do not need to redress the incision. May shower with dressing in place and no soaking incision for 2 weeks. Ice to shoulder Keep arm in sling but may come out for elbow range of motion exercises. May take over the counter stool softeners as needed for constipation due to pain medication. Follow up in [address] Call [facility] with any questions or concerns, Discharge Disposition: HOME SELF-CARE
[2024-11-12 09:49] VITALS: BP 181/91; PULSE 72; RESP 18; TEMP 98.1
[2024-11-12 11:54] LABS: Glucose,Whole Blood 132 mg/dL (70-110)
[2024-11-12] MEDS: HYDROcodone/APAP 7.5-325MG 1 EACH TAB PO PRN (11:55)
[2024-11-12] MEDS: CALCIUM CARBONATE 500 MG CHEWABLE PO PRN (14:08)
--- NOTE | 2024-11-12 14:19 | P.CONS ---
History of Present Illness - Reason for Consult Consult date: 11/12/24 Medical management - History of Present Illness History of present illness; patient 74-year-old gentleman with past medical history significant for osteoarthritis who presented the hospital for elective reverse left total shoulder arthroplasty. Patient has been dealing with left shoulder pain for a while, patient had tried all conservative measures but it has failed. Patient was scheduled for surgery on 11/11. Postoperatively internal medicine team were consulted REVIEW OF SYSTEMS: CONSTITUTIONAL: No fever, no malaise, no fatigue. HEENT: No recent visual problems or hearing problems. Denied any sore throat. CARDIOVASCULAR: No chest pain, orthopnea, PND, no palpitations, no syncope. PULMONARY: No shortness of breath, no cough, no hemoptysis. GASTROINTESTINAL: No diarrhea, no nausea, no vomiting, no abdominal pain. NEUROLOGICAL: No headaches, no weakness, no numbness. HEMATOLOGICAL: Denies any bleeding or petechiae. GENITOURINARY: Denies any burning micturition, frequency, or urgency. MUSCULOSKELETAL/RHEUMATOLOGICAL: Left shoulder pain ENDOCRINE: Denies any polyuria or polydipsia. The rest of the 14-point review of systems is negative. PHYSICAL EXAMINATION: GENERAL: The patient is alert and oriented x3, not in any acute distress. Well developed, well nourished. HEENT: Pupils are round and equally reacting to light. EOMI. No scleral icterus. No conjunctival pallor. Normocephalic, atraumatic. No pharyngeal erythema. No thyromegaly. CARDIOVASCULAR: S1 and S2 present. No murmurs, rubs, or gallops. PULMONARY: Chest is clear to auscultation, no wheezing or crackles. ABDOMEN: Soft, nontender, nondistended, normoactive bowel sounds. No palpable organomegaly. MUSCULOSKELETAL: Left shoulder sling seen EXTREMITIES: No cyanosis, clubbing, or pedal edema. NEUROLOGICAL: Gross neurological examination did not reveal any focal deficits. SKIN: No rashes. Assessment and plan Left shoulder osteoarthritis status post left total shoulder arthroplasty Hypertension Diabetes mellitus History of coronary disease Monitor vital signs Monitor CBC Monitor CMP Continue pain management per orthopedics Continue DVT prophylaxis per orthopedics Resume home meds PT and OT consulted Labs and medication were reviewed.. Continue same treatment. Continue with symptomatic treatment. Resume home medication. Monitor labs and vitals. DVT and GI prophylaxis. Further recommendations as per clinical course of the patient Dictation was produced using [employer] dictation software. please excuse any grammatical, word or spelling errors. Past Medical History Past Medical History: Chest Pain / Angina, Diabetes Mellitus, Hypertension, Myocardial Infarction ([place]), Osteoarthritis (OA) Additional Past Medical History / Comment(s): no recent chest pain, chronic back pain, hx. cyst on liver, transgender Last Myocardial Infarction Date:: unk History of Any Multi-Drug Resistant Organisms: None Reported Past Surgical History: Appendectomy, Heart Catheterization With Stent, Joint Replacement, Tonsillectomy Additional Past Surgical History / Comment(s): bilateral hip replacement, right elbow surg., CTS alejandra Past Anesthesia/Blood Transfusion Reactions: No Reported Reaction Date of Last Stent Placement:: unknown Past Psychological History: Depression, PTSD Smoking Status: Current every day smoker Past Alcohol Use History: None Reported Additional Past Alcohol Use History / Comment(s): <ppd for 25 yrs. Past Drug Use History: Marijuana Additional Drug Use History / Comment(s): uses for pain management - Past Family History Mother Family Medical History: COPD, Coronary Artery Disease (CAD), Diabetes Mellitus Brother(s) Family Medical History: Diabetes Mellitus Additional Family Medical History / Comment(s): liver transplant, hepatitis C Father Family Medical History: Cancer, Diabetes Mellitus Additional Family Medical History / Comment(s): lung CA Medications and Allergies Home Medications Medication Instructions Recorded Confirmed Type Testosterone Cypionate 200 mg IM Q14D 04/30/19 11/11/24 History [Depo-Testosterone] metFORMIN HCL ER [Glucophage Xr] 1,000 mg PO BID 04/30/19 11/11/24 History Pioglitazone [Actos] 15 mg PO DAILY 03/07/21 11/11/24 History Isosorbide Mononitrate ER [Imdur] 30 mg PO DAILY 11/17/23 11/11/24 History Metoprolol Succinate (ER) [Toprol 25 mg PO DAILY 11/17/23 11/11/24 History Xl] Nitroglycerin Sl Tabs [Nitrostat] 0.4 mg SL Q5M PRN 11/17/23 11/11/24 History lisinopriL [Zestril] 20 mg PO DAILY 11/17/23 11/11/24 History Aspirin 81 mg PO DAILY 11/07/24 11/11/24 History Empagliflozin [Jardiance] 25 mg PO DAILY 11/07/24 11/11/24 History FLUoxetine HCL [PROzac] 20 mg PO DAILY 11/07/24 11/11/24 History Gabapentin [Neurontin] 300 mg PO HS 11/07/24 11/11/24 History HYDROcodone/APAP 7.5-325MG [[place] 1 - 2 tab PO Q6HR PRN #32 tab 11/12/24 Rx 7.5-325] Sennosides-Docusate Sodium 2 tab PO DAILY #30 tablet 11/12/24 Rx [Senokot-S] Allergies Allergy/AdvReac Type Severity Reaction Status Date / Time codeine Allergy Rash/Hives, Verified 11/11/24 13:43 abd. pain Penicillins Allergy Unknown Verified 11/11/24 13:43 ketorolac [From Toradol] AdvReac doesn't Verified 11/11/24 13:43 work for pt. oxycodone HCl AdvReac Unknown Verified 11/11/24 13:43 [From OxyContin] Physical Exam Vitals: Vital Signs Temp Pulse Pulse Resp BP Pulse Ox 11/12/24 07:49 98.1 F 72 18 181/91 97 11/12/24 02:00 98.3 F 69 17 128/83 96 11/11/24 20:00 98 F 90 16 105/69 93 L 11/11/24 18:30 96 16 117/57 93 L 11/11/24 18:15 93 16 122/58 95 11/11/24 18:00 92 16 115/58 93 L 11/11/24 17:48 89 16 111/57 97 11/11/24 17:36 98 F 95 16 128/77 97 11/11/24 14:28 67 16 114/68 97 Intake and Output 11/11/24 11/12/24 11/12/24 22:59 06:59 14:59 Intake Total 401 Output Total 50 1 Balance 351 -1 Intake: IV 401 Output: Urine 1 Estimated Blood Loss 50 Other: Voiding Method Toilet # Voids 2 1 Weight 73.2 kg Results Labs: Abnormal Lab Results - Last 24 Hours (Table) 11/11/24 11/11/24 11/11/24 Range/Units 14:06 17:51 21:15 POC Glucose (mg/dL) 120 H 169 H 154 H (70-110) mg/dL Hemoglobin A1c (<=6.0) % 11/12/24 11/12/24 11/12/24 Range/Units 02:20 06:22 11:52 POC Glucose (mg/dL) 136 H 132 H (70-110) mg/dL Hemoglobin A1c 6.9 H (<=6.0) %
--- NOTE | 2024-11-12 15:24 | P.OP ---
Date of Procedure: 11/11/24 Preoperative Diagnosis: Left shoulder glenohumeral osteoarthritis Postoperative Diagnosis: same Procedure(s) Performed: Left reverse total shoulder arthroplasty Implants: [employer] Comprehensive Reverse - small augmented baseplate, 25mm central screw, 25/30/20/15mm locking screws, standard glenosphere 36mm, size 9 mini humeral stem, 36mm standard tray with standard PE Anesthesia: IFEOMA regional Surgeon: Lynne Way Resource Development Director #1: Layla Nolasco Estimated Blood Loss (ml): 100 Pathology: none sent Condition: stable Disposition: PACU Indications for Procedure: Patient has had long standing advanced OA of the shoulder. He has failed conservative treatment and would like to proceed with a reverse arthroplasty. Description of Procedure: The patient, operative extremity, and procedure were identified in the preop holding area. After informed consent was obtained, they received a regional block and was brought back to the OR where they were placed under general and placed in the beach chair position. All bony and neurovascular structures were well padded. The upper extremity was then prepped and draped in normal sterile fashion. An oblique incision was then made from the corocoid towards the attachment of the deltoid. Dissection was carried down to the delto pectoral interval and the cephalic vein was identified and mobilized laterally. About 5mm of the pectoralis insertion was released. A del angel elevator was swept under the acromion to clear the subdeltoid space. The conjoined tendon was identified and the clavipectoral fascia was released to allow for placement of the bethany retractor. The biceps tendon was located in the groove and released. A tenodesis was performed distal to the bicipital groove with an 0 vicryl. A subscapularis tenotomy was performed in an oblique fashion. The tendon was tagged with 0 vicryl. The humerus was externally rotated until the joint dislocated. The starting drill and serial reamers were inserted just posterior to the bicipital groove. The cutting jig was inserted and utilized to make the humeral head resection. The opening reamers were utilized followed by serial broaches with about 30 degrees of retroversion. A size 9 was found to be a good fit with rotational and axial stability. The protector plate was then impacted. The inferior osteophytes were carefully removed from the humeral neck with a rongeur. The capsule was teased away from the subscapularis tendon and removed with bovie cautery. Attention was then turned to the glenoid. The biceps tendon was followed to the labrum which was removed using bovey cautery. The axillary nerve was palpated and protected. The edges of the glenoid were exposed. The aiming guide was used to insert the guide pin in the inferior third of the glenoid. The appropriate reamers were utilized to create the bleeding bone base for the glenoid. The central hole was drilled and the small augment base plate trial was used with good contact. The final implant was inserted. Measuring device confirmed a 25 central screw. A nonlocking screw was inserted in the center with good fixation. The remaining locking screws were inserted. A standard glenosphere was selected and impacted into place. Attention was then turned back to the humerus. The cup and standard poly trial was assembled. Initially the joint was too tight and an additional humeral cut was made. Again the stem tray and trial poly were assembed. Reduction of the trial showed good tension and stability with minimal shuck and good range of motion. The trials were removed and the final implants were inserted. Pulse lavage with normal saline was used to irrigate the construct. The subscapularis was too tight and the decision was made not to repair it. The wound was closed in a layered fashion with 0 vicryl, 3.0 vicryl, 4.0 monocryl, and skin glue. Wound was dressed with an optifoam dressing. The skilled assistance of the advanced practitioner was necessary through the entirety of the case for retraction and protection of important neurovascular structures.
== END 2024-11-12 14:35 | disposition home or self-care (01) ==
LOC: OR 13:27 → 4SSUR 17:36 → OR 11-12 14:35
PROVIDERS: ATTEND Orthopaedic Surgery Hand Surgery
DX: M19.012 Primary osteoarthritis, left shoulder (principal); M19.022 Primary osteoarthritis, left elbow; M19.021 Primary osteoarthritis, right elbow
CPT/HCPCS: 64415; 83036; 73020; 23472; C1776; J2250; J1100; J0690 ×3; J2405 ×2; J1171

== ENCOUNTER → 2025-04-25 | Outpatient (CLI) | payer MEDICARE, OTHER ==
[2025-04-25 15:48] LABS: ALT 11 U/L (10-49); AST 16 U/L (14-35); Chol/HDL Ratio 4.43 Ratio; LDL Cholesterol,Calculated 125.7 mg/dL (0.0-131.0)
== END | disposition home or self-care (01) ==
LOC: LABWHC1 10:13
PROVIDERS: ATTEND Internal Medicine Cardiovascular Disease
DX: E78.2 Mixed hyperlipidemia (principal)
CPT/HCPCS: 36415; 80061; 84450; 84460